=== PATIENT | male | born 1945 | race Caucasian/White ===

== ENCOUNTER 2021-03-02 13:39 | Emergency (ER) | payer MEDICARE, MEDICAID ==
[~2021-03-02] VITALS: Ht 177.8 cm; Wt 86.4 kg
[2021-03-02] MEDS ORDERED: METF-960 PO (13:59)
[2021-03-02] MEDS ORDERED: GLYB5TAB10 PO (13:59)
[2021-03-02 17:11] VITALS: BP 132/70
== END 2021-03-02 17:27 | disposition home or self-care (01) ==
LOC: EMS 13:42
DX: S13.4XXA Sprain of ligaments of cervical spine, initial encounter (principal); S00.33XA Contusion of nose, initial encounter; E11.9 Type 2 diabetes mellitus without complications; Z79.84 Long term (current) use of oral hypoglycemic drugs; W06.XXXA Fall from bed, initial encounter; Y93.89 Activity, other specified; Y92.89 Other specified places as the place of occurrence of the external cause; Y99.8 Other external cause status
CPT/HCPCS: 70450; 72125; 82962; 99285